=== PATIENT | female | born 1995 | race Caucasian/White ===

== ENCOUNTER 2022-11-02 05:18 | Emergency (ER) | payer OTHER ==
[~2022-11-02] VITALS: Ht 167.6 cm; Wt 52.2 kg
--- NOTE | 2022-11-02 05:46 | NUR ---
urine collected and sent to lab
--- NOTE | 2022-11-02 05:46 | NUR ---
EKG at bedside
--- NOTE | 2022-11-02 05:48 | NUR ---
YARELY. C/O NAUSEA, VOMMITING AND PALPITATION X 0200 UPON WAKING UP. DENIES CP. A/OX4. ROOM AIR. CONNTECTD TO MONITOR.
--- NOTE | 2022-11-02 06:04 | NUR ---
IV IN RAC#20, LABS COLLECTED AND SENT TO LAB
--- NOTE | 2022-11-02 06:07 | NUR ---
SEEN BY DR TERRY AT BEDSIDE
--- NOTE | 2022-11-02 06:11 | NUR ---
PATIENT REQUEST WATER, PER OK TO GIVE WATER.
[2022-11-02] MEDS ORDERED: ONDANSETRON HCL/PF 4 MG/2 ML VIAL ONE (06:15)
[2022-11-02 06:24] LABS: BASOPHILS # (AUTO) 0.1 K/uL (0.0-0.2); BASOPHILS % (AUTO) 0.6 % (0.0-2.0); HEMATOCRIT 37 % (33-45); HEMOGLOBIN 12.3 g/dL (11.5-14.8); LYMPHOCYTES # (AUTO) 1.9 K/uL (0.8-4.8); LYMPHOCYTES % (AUTO) 13.5 % (20.0-44.0); MEAN CORPUSCULAR HGB CONC 34 g/dl (31.0-36.0); MEAN CORPUSCULAR VOLUME 95 fL (82-100); MONOCYTES # (AUTO) 0.9 K/uL (0.1-1.30); MONOCYTES % (AUTO) 6.4 % (2.0-12.0); NEUTROPHILS # (AUTO) 11.3 K/uL (1.8-8.9); NEUTROPHILS % (AUTO) 79.5 % (43.0-81.0); PLATELET COUNT (AUTO) 203 K/uL (150-450); RED BLOOD CELL COUNT(AUTO) 3.89 MIL/uL (4.0-5.2); WHITE BLOOD COUNT (AUTO) 14.2 K/uL (4.3-11.0)
[2022-11-02] MEDS ORDERED: ONDANSETRON HCL/PF 4 MG/2 ML VIAL IVP ONE (06:30)
[2022-11-02] MEDS ORDERED: IV NS 0.9% 1,000 ML BAG IV ONE (06:30)
[2022-11-02 07:02] LABS: CARBON DIOXIDE 18 mmol/L (21-32); CHLORIDE 103 mmol/L (98-107); GLUCOSE 77 mg/dL (74-106); POTASSIUM 3.3 mmol/L (3.5-5.1); SODIUM SERUM 139 mmol/L (136-145); UREA NITROGEN, BLOOD 16 mg/dL (7-18)
--- NOTE | 2022-11-02 07:33 | NUR ---
Patient AOx4 able to express her concerns. Patient states she is feeling ok, just tired. Patient with no signs of distress or discomfort. Discussed palan of care, patient verbalized agreement. All safety precautions taken.
[2022-11-02 07:46] LABS: MAGNESIUM 1.7 mg/dL (1.8-2.4)
[2022-11-02 08:00] LABS: THYROID STIMULATING HORMONE 1.171 uIU/mL (0.358-3.74)
[2022-11-02 08:36] LABS: ALCOHOL, BLOOD 10 mg/dL (0-0)
[2022-11-02] MEDS ORDERED: ONDA4TAB11 PO (09:18)
[2022-11-02 09:27] VITALS: BP 104/60
== END 2022-11-02 09:28 | disposition home or self-care (01) ==
LOC: ER 05:27
DX: I49.3 Ventricular premature depolarization (principal); R11.2 Nausea with vomiting, unspecified; Z79.899 Other long term (current) drug therapy
CPT/HCPCS: 99285; 96374; 96361; 93005; 71045; 85025; 80048; 83735; 85378; 84703; 36415; 84443; 84484; 83880; 80143; 80320; 80307; J2405; J7030; G0480

== ENCOUNTER 2024-06-12 11:34 | Emergency (ER) | payer OTHER ==
[~2024-06-12] VITALS: Ht 167.6 cm; Wt 56.7 kg
[~2024-06-12 11:34] MED LIST: ONDA4TAB11 PO
[2024-06-12 11:53] VITALS: BP 125/65; TEMP 97.7
[2024-06-12 13:43] LABS: AMPHETAMINE, URINE NEGATIVE (NEGATIVE); BARBITURATE, URINE NEGATIVE (NEGATIVE); BENZODIAZEPINE, URINE NEGATIVE (NEGATIVE); COCCAINE, URINE NEGATIVE (NEGATIVE); OPIATE, URINE NEGATIVE (NEGATIVE); PHENCYCLIDINE SCREEN,URINE NEGATIVE (NEGATIVE)
[2024-06-12 13:47] LABS: CANNABINOID, URINE POSITIVE (NEGATIVE)
[2024-06-12 14:00] VITALS: O2SAT 100
== END 2024-06-12 14:02 | disposition home or self-care (01) ==
LOC: ER 11:55
DX: R55 Syncope and collapse (principal); T50.905A Adverse effect of unspecified drugs, medicaments and biological substances, initial encounter; Y92.89 Other specified places as the place of occurrence of the external cause